=== PATIENT | male | born 1970 | race Caucasian/White ===

== ENCOUNTER 2018-05-09 15:30 | Emergency (ER) | payer MEDICARE ==
[~2018-05-09] VITALS: Ht 170.2 cm; Wt 99.8 kg
[~2018-05-09 15:30] MED LIST: ATEN25TA2 PO; PRAV20TA46 PO
[2018-05-09 15:33] VITALS: BP 136/112
--- NOTE | 2018-05-09 15:33 | NUR ---
47 YO M BIBA W/ SEVERE AND UNKNOWN ALLERGIC REACTION TO BEE STING WHILE GARDENING. EPI 2MG IM,BENADRYL 25 MG IV, ALBUTEROL TX GIVEN FIELD. SOB/DIFFICULT = TO SWALLOW ON SCENE. PER VERBAL ORDER, 0.3 MG EPI TO BE GIVEN NOW SUBQ, AND SOLU-MEDROL 125MG IM GIVEN NOW AND RT CALLED FOR ADDITIONAL BREATHING TREATMENT. PT O2 SAT AT 98/97% AT THIS TIME. PERIO-ORBITAL SWELLING BILATERALLY AND SWOLLEN LIPS. PT REPORTS THAT HE FEELS THROAT TIGHTNESS, BUT IS ABLE TO SPEAK IN FULL, APPROPRIATE, AND COMPLETE SENTENCES. PT PLACED NEAR NURSES STATION FOR CLOSE MONITORING. VSS AT THIS TIME. LUNG TEE W/ BILATERAL WHEEZING, BUT IMPROVED SINCE ARRIVAL. PT AAOX4. GCS 15. CMS INTACT, RR SLOWING, BUT STILL TACHYPNIC. ER MD JUNIOR AT BEDSIDE. DTR AT BEDSIDE. SAFETY PRECAUTIONS IN PLACE. WILL CONTINUE TO MONIOR.
[2018-05-09] MEDS ORDERED: methylPREDNISolone SS 125 MG/2 ML VIAL IVP ONE (15:35)
[2018-05-09] MEDS ORDERED: methylPREDNISolone SS 125 MG/2 ML VIAL ONE (15:37)
[2018-05-09] MEDS ORDERED: NACL 0.9% 1,000 ML IV ONE (15:45)
--- NOTE | 2018-05-09 15:45 | NUR ---
PATIENT MOVED TO BED #10
[2018-05-09] MEDS ORDERED: RACEPINEPHRINE 2.25% 13.5 MG/0.5 ML NEBU INH ONE (15:55)
--- NOTE | 2018-05-09 16:01 | NUR ---
ADMTTING DX: ALLERGIC REACTIONS PATIENT DENIES COPD/ASTHMA AWAKE AND ALERT EDUCTIOON PROVIDED TO MARIA LUISA WITH ACKNOWLEDGEMENT ON [facility] AND RESPIRATORY [facility] GIVEN OREDERED TOLERATED WEL WITHOUT ADVERES REACTIONS NOTED
[2018-05-09 16:11] LABS: BASOPHILS # (AUTO) 0.1 K/uL (0.00-0.22); BASOPHILS % (AUTO) 0.4 % (0.0-2.0); EOSINOPHILS # (AUTO) 0.1 K/uL (0-0.4); EOSINOPHILS % (AUTO) 0.7 % (0.0-4.0); HEMATOCRIT 60.4 % (36-52); LYMPHOCYTES # (AUTO) 5.8 K/uL (2.0-11.5); LYMPHOCYTES % (AUTO) 32.7 % (20.5-51.1); MEAN CORPUSCULAR HEMOGLOBIN 32 pg (27-31); MEAN CORPUSCULAR HGB CONC 33 g/dL (33-37); MEAN CORPUSCULAR VOLUME 94.9 fL (80-94); MONOCYTES # (AUTO) 0.5 K/uL (0.8-1.0); MONOCYTES % (AUTO) 2.9 % (1.7-9.3); NEUTROPHILS # (AUTO) 11.1 K/uL (1.8-7.7); NEUTROPHILS % (AUTO) 63.3 % (42.2-75.2); PLATELET COUNT (AUTO) 198 K/uL (140-450); RED BLOOD CELL COUNT(AUTO) 6.37 MIL/uL (4.20-6.10); RED CELL DISTRIBUTION WIDTH 12.4 % (11.6-13.7); WHITE BLOOD COUNT (AUTO) 17.6 K/uL (4.8-10.8)
[2018-05-09 16:29] LABS: HEMOGLOBIN 20.1 g/dL (12.0-18.0)
[2018-05-09 16:30] LABS: ANION GAP 16.7 (8-16); CREATININE 1.4 mg/dL (0.7-1.3); TOTAL BILIRUBIN 0.8 mg/dL (0.0-1.0)
--- NOTE | 2018-05-09 16:32 | NUR ---
CRITICAL LAB VALUE RECEIVED AT THIS TIME. HEMAGLOBIN 20.1, HEMATICRIT 60.4, AND POTASSIUM 2.7. ER MD JUNIOR NOTIFIED.
[2018-05-09 16:33] LABS: POTASSIUM 2.7 mmol/L (3.5-5.1)
[2018-05-09] MEDS ORDERED: POTASSIUM CHLORIDE 10 MEQ TABER PO ONE (16:35)
--- NOTE | 2018-05-09 16:47 | NUR ---
PT RR MORE EVEN AND UNLABORED AT THIS TIME. LUNG TEE ARE MORE CLEAR AT THIS TIME. VSS. SAFETY PRECAUTIONS IN PLACE. WILL CONTINUE TO MONITOR.
[2018-05-09] MEDS ORDERED: HYDROcodone/APAP 7.5/325 MG 1 TAB PO PRN (17:00)
[2018-05-09] MEDS ORDERED: ACETAMINOPHEN 325 MG TAB PO PRN (17:00)
[2018-05-09] MEDS ORDERED: ONDANSETRON 4 MG/2 ML VIAL IVP PRN (17:00)
--- NOTE | 2018-05-09 17:15 | NUR ---
xray at bedside at this time.
--- NOTE | 2018-05-09 17:32 | NUR ---
pt leaving AMA at this time. Pt does not want to stay over night in the hospital. Pt educated on why it is vital to stay for monitoring. Pt agrred to chest xray prior to leaving. ER MD notified and to speak with pt.
[2018-05-09 17:33] VITALS: BP 120/84
[2018-05-09 17:49] LABS: CHOL/HDL RATIO 4.1 (1-4.5); FREE T4 (FREE THYROXINE) 0.96 ng/dL (0.76-1.46); PHOSPHORUS 4.5 mg/dL (2.5-4.9); THYROID STIMULATING HORMONE 4.6 uIU/mL (0.34-3.74)
[2018-05-09] MEDS ORDERED: FAMOTIDINE 20 MG TAB PO SCH (18:00)
[2018-05-09] MEDS ORDERED: LORATADINE 10 MG TAB PO SCH (18:00)
[2018-05-09] MEDS ORDERED: DOCUSATE SODIUM 100 MG GELCAP PO SCH (21:00)
== END 2018-05-09 17:32 | disposition left against medical advice (07) ==
LOC: MED 15:30 → MTU 16:57 → UNDOADMIN 16:57 → MED 17:32
DX: T78.2XXA Anaphylactic shock, unspecified, initial encounter (principal); D75.1 Secondary polycythemia; E87.6 Hypokalemia; R06.02 Shortness of breath; R13.10 Dysphagia, unspecified; R21 Rash and other nonspecific skin eruption; I10 Essential (primary) hypertension; Z79.899 Other long term (current) drug therapy; X58.XXXA Exposure to other specified factors, initial encounter; Y93.89 Activity, other specified; Y92.89 Other specified places as the place of occurrence of the external cause; Y99.8 Other external cause status
CPT/HCPCS: 36415; 71045; 80053; 80061; 82150; 82948; 83036; 83690; 83735; 83880; 84100; 84439; 84443; 84484; 85025; 85610; 85730; 94640; 96372; 99291; J0171; J2930; Q0092; 96374; 99284

== ENCOUNTER 2019-05-01 09:55 | Emergency (ER) | payer BC, MEDICARE ==
[~2019-05-01] VITALS: Ht 170.2 cm; Wt 105.7 kg
[2019-05-01 10:06] VITALS: BP 143/93
--- NOTE | 2019-05-01 10:11 | NUR ---
PT BIB SELF WITH C/O NECK PAIN/HEADACHES X 2 DAYS 11/08, ACHEY/"ANNOYING". DENIES N/V/D/FEVER. PT REPORTS FEELING LIKE HIS NECK IS STIFF AND HE THINKS HIS HEADACHES ARE DUE TO NOT HAVING HIS BP MEDICATION RIGHT NOW BECAUSE HE RAN OUT. PT ABLE TO TO MOVE HIS NECK RT AND LFT WITHOUT PROBLEM. STATES TO HAVE SLIGHT CHEST PAIN 11/08. DENIES ANY SOB . PUT IN BEDSIDE MONITOR. ER MD TO SEE THE PT. HX: HTN, HIGH CHOLESTEROL RX: ATENOLOL, SIMVISTATIN, ASPIRIN, HYDROCHLOROTHIAZIDE
--- NOTE | 2019-05-01 10:11 | NUR ---
PT AMBULATED TO ER BED 3
[2019-05-01 10:39] VITALS: BP 134/86
--- NOTE | 2019-05-01 10:39 | NUR ---
Patient discharged with v/s stable. Written and verbal after care instructions given and explained. Patient alert, oriented and verbalized understanding of instructions. Ambulatory with steady gait. All questions addressed prior to discharge. ID band removed. Patient advised to follow up with PMD. Rx of ATENOLOL given. Patient educated on indication of medication including possible reaction and side effects. Opportunity to ask questions provided and answered.
== END 2019-05-01 10:39 | disposition home or self-care (01) ==
LOC: MED 09:55
DX: I10 Essential (primary) hypertension (principal); R51 Headache; M54.2 Cervicalgia; E11.9 Type 2 diabetes mellitus without complications; Z76.0 Encounter for issue of repeat prescription; Z79.899 Other long term (current) drug therapy
CPT/HCPCS: 99283

== ENCOUNTER 2022-10-12 12:34 | Emergency (ER) | payer BC ==
[~2022-10-12] VITALS: Ht 170.2 cm; Wt 104.3 kg
[2022-10-12 12:43] VITALS: BP 130/85
== END 2022-10-12 14:19 | disposition home or self-care (01) ==
LOC: MED 12:34
DX: H66.93 Otitis media, unspecified, bilateral (principal); I10 Essential (primary) hypertension; E78.5 Hyperlipidemia, unspecified; Z79.899 Other long term (current) drug therapy
CPT/HCPCS: 99282